=== PATIENT | male | born 1960 | race Caucasian/White ===

== ENCOUNTER 2018-04-02 10:16 | Inpatient (IN) | payer OTHER ==
[2018-04-02] MEDS: LIDOCAINE 1% MDV 20ML VIAL SQ (10:44)
[2018-04-02] MEDS: LR 1,000 ML IV ×3 (10:45→14:30)
[2018-04-02] MEDS ORDERED: ceFAZolin 1GM INJ (J0690 PER 500MG) As Ordered (11:01)
[2018-04-02] MEDS ORDERED: MIDAZOLAM INJ 2 MG/2 ML VIAL (J2250) As Ordered ×2 (11:06→12:17)
[2018-04-02] MEDS ORDERED: fentaNYL 100 MCG/2 ML INJECTION (J3010) As Ordered ×3 (11:06→12:57)
[2018-04-02] MEDS: MIDAZOLAM INJ 2 MG/2 ML VIAL (J2250) IV (11:40)
[2018-04-02] MEDS: fentaNYL 100 MCG/2 ML INJECTION (J3010) IV (11:40)
[2018-04-02] MEDS ORDERED: LIDOCAINE 2% INJ 100 MG/5 ML SDV (FOR ANES.) As Ordered (12:17)
[2018-04-02] MEDS ORDERED: ONDANSETRON 4MG/2ML VIAL (J2405) As Ordered ×2 (12:17→12:56)
[2018-04-02] MEDS ORDERED: PROPOFOL 500 MG/50 ML VIAL As Ordered (12:17)
[2018-04-02] MEDS: ceFAZolin SOD 1 GM in D5W MINI-BAG PLUS 50 ML IV ×2 (12:30→19:55)
[2018-04-02] MEDS ORDERED: PROPOFOL 200 MG/20 ML VIAL As Ordered ×3 (12:55→12:56)
[2018-04-02] MEDS ORDERED: dexameTHASONE 4 MG/ML 1ML VIAL (J1100) As Ordered (12:56)
[2018-04-02] MEDS: BUPIVACAINE LIPOSOME/PF 1.3% 20 ML VIAL (13.3MG/ML)(EXPAREL) As Ordered (13:06)
[2018-04-02] MEDS: TRANEXAMIC ACID 100 MG/ML 10ML VIAL As Ordered (13:07)
[2018-04-02] MEDS: EPINEPHrine INJ 1 MG/ML 1ML AMP As Ordered (13:07)
[2018-04-02] MEDS: ceFAZolin 1GM INJ (J0690 PER 500MG) As Ordered (13:08)
[2018-04-02] MEDS ORDERED: MORPHINE 1MG/ML IN 0.9% NACL 100ML IV BAG As Ordered (14:09)
[2018-04-02] MEDS: ONDANSETRON 4MG/2ML VIAL (J2405) IV (14:15)
[2018-04-02] MEDS ORDERED: fentaNYL 100 MCG/2 ML INJECTION (J3010) IV (14:15)
[2018-04-02] MEDS ORDERED: ACETAMINOPHEN TAB 650MG DOSE (2X325MG) PO (14:30)
[2018-04-02] MEDS ORDERED: NALOXONE INJ 0.4 MG/1 ML VIAL (J2310) IV (14:30)
[2018-04-02] MEDS: MORPHINE 1MG/ML IN 0.9% NACL 100ML IV BAG IV (14:30)
[2018-04-02] MEDS ORDERED: EPIDURAL/PCA KEYS XX (14:30)
[2018-04-02] MEDS ORDERED: FLEET ENEMA PR (14:30)
[2018-04-02] MEDS ORDERED: ONDANSETRON 4MG/2ML VIAL (J2405) IV ×2 (14:30)
[2018-04-02] MEDS ORDERED: NALBUPHINE HCL 10 MG/ML AMP (J2300) IV (14:30)
[2018-04-02] MEDS ORDERED: diphenhydrAMINE INJ 50MG/ML VIAL (J1200) IV (14:30)
[2018-04-02] MEDS ORDERED: dexameTHASONE 10 MG/1 ML VIAL PRES.FREE (J1100) (15:17)
[2018-04-02] MEDS ORDERED: ROPIvacaine 0.5% 30 ML INJECTION (J2795 PER 1MG) (15:17)
[2018-04-02] MEDS ORDERED: EPINEPHrine INJ 1 MG/ML 1ML AMP (15:17)
[2018-04-02] MEDS: WARFARIN SOD 5 MG TAB PO (16:36)
[2018-04-02] MEDS: SENOKOT S TAB PO (19:55)
[2018-04-03] MEDS: LR 1,000 ML IV (03:50)
[2018-04-03] MEDS: ceFAZolin SOD 1 GM in D5W MINI-BAG PLUS 50 ML IV (05:20)
[2018-04-03 06:36] LABS: HEMOGLOBIN 13.7 g/dl (13.5-17.5); MEAN CORPUSCULAR HEMOGLOBIN 30.9 pg (27.0-33.0); MEAN CORPUSCULAR HGB CONC 34.3 g/dl (32.0-36.5); MEAN CORPUSCULAR VOLUME 90.1 fl (80.0-96.0); PLATELET COUNT, AUTOMATED 218 10^3/uL (150-450); RED BLOOD COUNT 4.44 10^6/uL (4.30-6.10); RED CELL DISTRIBUTION WIDTH 12.7 % (11.5-14.5); WHITE BLOOD COUNT 13.9 10^3/uL (4.0-10.0)
[2018-04-03 06:48] LABS: INR 1.17; PROTHROMBIN TIME 15.1 SECONDS (12.4-14.5)
[2018-04-03 06:56] LABS: ANION GAP 5 MEQ/L (8-16); BLOOD UREA NITROGEN 14 MG/DL (7-18); CALCIUM LEVEL 8.2 MG/DL (8.5-10.1); CARBON DIOXIDE LEVEL 29 MEQ/L (21-32); CHLORIDE LEVEL 107 MEQ/L (98-107); GLOMERULAR FILTRATION RATE > 60.0 (>56); GLUCOSE, FASTING 142 MG/DL (70-100); MAGNESIUM LEVEL 2.2 MG/DL (1.8-2.4); POTASSIUM SERUM 4.2 MEQ/L (3.5-5.1); SODIUM LEVEL 141 MEQ/L (136-145)
[2018-04-03] MEDS ORDERED: PERCOCET 5MG/325MG TAB PO (07:00)
[2018-04-03] MEDS: MOM 30ML SUSPENSION UDC PO (08:08)
[2018-04-03] MEDS: SENOKOT S TAB PO ×4 (08:08→20:44)
[2018-04-03] MEDS: amLODIPine 10 MG TAB PO (08:09)
[2018-04-03] MEDS: LISINOPRIL 5 MG TAB PO (08:09)
[2018-04-03] MEDS: ATORVASTATIN 20 MG TAB PO (08:09)
[2018-04-03] MEDS: METOPROLOL TART 25 MG TABLET PO (08:10)
[2018-04-03] MEDS: ISOSORBIDE MON. (IMDUR) 60 MG XR TAB PO (08:10)
[2018-04-03] MEDS: PERCOCET 5MG/325MG TAB PO (08:11)
[2018-04-03] MEDS: MIRALAX *UNIT DOSE* 17GM PACKET PO (08:12)
[2018-04-03] MEDS: OMEPRAZOLE 20 MG CAP PO (08:12)
[2018-04-03] MEDS: OCUVITE 1 TAB PO (08:12)
[2018-04-03] MEDS: oxyBUTYnin 5 MG TAB PO (08:13)
[2018-04-03] MEDS ORDERED: NORCO, ANEXSIA 5/325MG TABLET (HYDROcodone/ACETAMINOPHEN) PO (09:15)
[2018-04-03] MEDS: NORCO, ANEXSIA 5/325MG TABLET (HYDROcodone/ACETAMINOPHEN) PO ×4 (09:23→23:09)
[2018-04-03] MEDS: INFLUENZA QUADRIVALENT PF VACCINE 0.5ML SYRINGE (90686) IM (10:30)
[2018-04-03] MEDS ORDERED: WARFARIN SOD 5 MG TAB PO (17:00)
[2018-04-03] MEDS: CALCIUM CARBONATE 500 MG CHEW U/D PO (17:29)
[2018-04-03] MEDS: ONDANSETRON 4 MG TAB (S0181) PO (17:30)
[2018-04-03] MEDS: WARFARIN SOD 7.5 MG TAB PO (17:30)
[2018-04-04 06:02] LABS: HEMATOCRIT 37.2 % (42.0-52.0); HEMOGLOBIN 12.5 g/dl (13.5-17.5); MEAN CORPUSCULAR HEMOGLOBIN 30.6 pg (27.0-33.0); MEAN CORPUSCULAR HGB CONC 33.6 g/dl (32.0-36.5); PLATELET COUNT, AUTOMATED 196 10^3/uL (150-450); RED BLOOD COUNT 4.09 10^6/uL (4.30-6.10); WHITE BLOOD COUNT 9.7 10^3/uL (4.0-10.0)
[2018-04-04] MEDS: NORCO, ANEXSIA 5/325MG TABLET (HYDROcodone/ACETAMINOPHEN) PO ×2 (06:02→11:38)
[2018-04-04 06:13] LABS: PROTHROMBIN TIME 15.4 SECONDS (12.4-14.5)
[2018-04-04 06:38] LABS: ANION GAP 5 MEQ/L (8-16); BLOOD UREA NITROGEN 14 MG/DL (7-18); CALCIUM LEVEL 7.7 MG/DL (8.5-10.1); CARBON DIOXIDE LEVEL 29 MEQ/L (21-32); CHLORIDE LEVEL 108 MEQ/L (98-107); CREATININE FOR GFR 0.84 MG/DL (0.70-1.30); GLOMERULAR FILTRATION RATE > 60.0 (>56); GLUCOSE, FASTING 104 MG/DL (70-100); MAGNESIUM LEVEL 2.4 MG/DL (1.8-2.4); POTASSIUM SERUM 3.9 MEQ/L (3.5-5.1); SODIUM LEVEL 142 MEQ/L (136-145)
[2018-04-04] MEDS: MIRALAX *UNIT DOSE* 17GM PACKET PO (08:12)
[2018-04-04] MEDS: MOM 30ML SUSPENSION UDC PO (08:12)
[2018-04-04] MEDS: OCUVITE 1 TAB PO (08:13)
[2018-04-04] MEDS: ATORVASTATIN 20 MG TAB PO (08:13)
[2018-04-04] MEDS: ISOSORBIDE MON. (IMDUR) 60 MG XR TAB PO (08:13)
[2018-04-04] MEDS: SENOKOT S TAB PO ×2 (08:14→08:15)
[2018-04-04] MEDS: LISINOPRIL 5 MG TAB PO (08:14)
[2018-04-04] MEDS: amLODIPine 10 MG TAB PO (08:14)
[2018-04-04] MEDS: OMEPRAZOLE 20 MG CAP PO (08:14)
[2018-04-04] MEDS: oxyBUTYnin 5 MG TAB PO (08:14)
[2018-04-04] MEDS: METOPROLOL TART 25 MG TABLET PO (08:14)
[2018-04-04] MEDS: ENOXAPARIN 40 MG/0.4 ML SYRINGE (J1650) SC (08:15)
== END 2018-04-04 14:45 | disposition home health service (06) | DRG 302 ==
LOC: M OR 10:16 → M MS5PR 15:15
PROC: 0SRC0J9 Replacement of Right Knee Joint with Synthetic Substitute, Cemented, Open Approach (ICD-10-PCS; principal; 2018-04-02 12:24)
DX: M17.11 Unilateral primary osteoarthritis, right knee (principal); E83.42 Hypomagnesemia; I10 Essential (primary) hypertension; E66.01 Morbid (severe) obesity due to excess calories; Z79.899 Other long term (current) drug therapy; E78.5 Hyperlipidemia, unspecified; K21.9 Gastro-esophageal reflux disease without esophagitis; Z96.652 Presence of left artificial knee joint; G47.33 Obstructive sleep apnea (adult) (pediatric)

== ENCOUNTER → 2018-04-17 | Outpatient (REF) | payer OTHER ==
[2018-04-17 16:11] LABS: INR 1.19; PROTHROMBIN TIME 15.3 SECONDS (12.4-14.5)
== END ==
LOC: M LAB REF 15:27
DX: Z51.81 Encounter for therapeutic drug level monitoring (principal); Z79.01 Long term (current) use of anticoagulants
CPT/HCPCS: 85610

== ENCOUNTER → 2018-07-10 | Outpatient (REF) | payer OTHER ==
[2018-07-10 20:48] LABS: BASO % 0.6 % (0.0-1.0); EOS # 0.2 10^3/uL (0.0-0.50); EOS % 2.6 % (0.0-3.0); HEMATOCRIT 42.1 % (42.0-52.0); HEMOGLOBIN 14.3 g/dl (13.5-17.5); IMMATURE GRANULOCYTE % 0.3 % (0-3.0); LYMPH # 1.8 10^3/uL (1.5-4.5); MEAN CORPUSCULAR HEMOGLOBIN 30.7 pg (27.0-33.0); MEAN CORPUSCULAR VOLUME 90.3 fl (80.0-96.0); MONO # 0.5 10^3/uL (0.0-0.8); MONO % 7.2 % (0.0-5.0); NEUTROPHILS # 3.8 10^3/uL (1.8-7.7); NEUTROPHILS % 61.3 % (36.0-66.0); PLATELET COUNT, AUTOMATED 234 10^3/uL (150-450); RED BLOOD COUNT 4.66 10^6/uL (4.30-6.10); RED CELL DISTRIBUTION WIDTH 13.2 % (11.5-14.5); WHITE BLOOD COUNT 6.3 10^3/uL (4.0-10.0)
[2018-07-10 20:54] LABS: C REACTIVE PROTEIN QUANTITATIV < 0.30 MG/DL (0.00-0.30)
[2018-07-10 21:07] LABS: ERYTHROCYTE SEDIMENTATION RATE 3 mm/hr (0-20)
== END ==
LOC: M LAB REF 20:36
DX: Z47.1 Aftercare following joint replacement surgery (principal)